=== PATIENT | male | born 1985 ===

== ENCOUNTER 2023-04-01 04:31 | Day surgery (SDC) | payer OTHER ==
[2023-03-31 09:55] VITALS: BMI 27.8
[2023-04-01 09:56] VITALS: TEMP 98
[2023-04-01 10:11] VITALS: RESP 18
[2023-04-01 10:43] VITALS: BP 111/62; PULSE 57
== END 2023-04-01 11:02 | disposition home or self-care (01) ==
LOC: JASU-ENDO 04:31
PROVIDERS: ATTEND Internal Medicine Gastroenterology
PROC: 0DBP8ZX Excision of Rectum, Via Natural or Artificial Opening Endoscopic, Diagnostic (ICD-10-PCS; principal; 2023-04-01 09:00)
DX: K62.1 Rectal polyp (principal)
CPT/HCPCS: 88305-TC